=== PATIENT | female | born 1965 | race Caucasian/White ===

== ENCOUNTER 2016-12-23 18:47 | Inpatient (IN) | payer OTHER, MEDICAID ==
[2016-12-23] MEDS ORDERED: IOPAMIDOL 370 (76%) 100 ML VIAL IV ONE (18:48)
[2016-12-23] MEDS ORDERED: LACTATED RINGERS 1,000 ML ONE (19:27)
[2016-12-23 20:02] LABS: ABSOLUTE NEUTROPHIL COUNT 6.8 K/mm3 (1.8-7.7); BASO # 0.1 K/mm3 (0.0-0.2); BASO % 0.6 % (0.2-1.0); EOS # 0.2 (0.0-0.5); EOS % 2.1 % (0.9-2.9); HEMATOCRIT 30.8 % (37.0-47.0); HEMOGLOBIN 8.6 gm/l (12.0-16.0); IMM NEUT% 0.3 % (0-1); LYMPH % 10.7 % (15-45); MEAN CELL VOLUME 75.9 fl (81.0-99.0); MEAN CORPUSCULAR HEMOGLOBIN 21.2 pg (27.0-31.0); MEAN CORPUSCULAR HGB CONC 27.9 g/dl (33.0-37.0); MEAN PLATELET VOLUME 9.5 fl (7.4-10.4); MONO % 10.7 % (4-12); NEUT % 75.6 % (43-75); PLATELET COUNT 372 K/mm3 (130-400); RED CELL DISTRIBUTION WIDTH 19.3 % (11.5-14.5)
[2016-12-23 20:04] LABS: VENOUS BLOOD GAS BASE EXCESS -1.8 mmol/L (-2.0-2.0); VENOUS BLOOD GAS HCO3 22.8 mmol/L (22.0-27.0)
[2016-12-23 20:07] LABS: ALB/GLOB RATIO 1.2 (>1.0); CALCIUM 8.1 mg/dL (8.6-10.3)
[2016-12-23] MEDS ORDERED: SODIUM CHLORIDE 0.9% 50 ML IV ONE (21:04)
[2016-12-23] MEDS ORDERED: CEFTRIAXONE SODIUM 1 G VIAL ONE (21:04)
[2016-12-23] MEDS ORDERED: DOXYCYCLINE HYCLATE 100 MG TABLET ONE (21:04)
[2016-12-23] MEDS ORDERED: POTASSIUM CHLORIDE 40 MEQ in SODIUM CHLORIDE 0.9% 500 ML IV ONE ×2 (22:00→22:54)
--- NOTE | 2016-12-23 22:06 | CT ---
CTA CHEST FOR PE COMPARISON: None HISTORY: Technique: Intravenous injection 80 mL of Isovue-370. Using a [employer] Aquilion [address] scanner, following a CT angiogram protocol, images obtained through the thorax. Under concurrent supervision and interpretation, requiring a separate 3-D workstation, the technologist created 3-D CT angiograms. An automated dose reduction technique was used to minimize patient radiation dose. Dose information: DLP(mGycm): 1048.80 FINDINGS: Pulmonary arteries and veins: Excellent contrast opacification. No pulmonary embolism. Aorta: Normal Heart and coronary arteries: Normal. Lungs: Consolidation in the right lower lobe. Scattered infiltrates in the right middle lobe, right upper lobe, and left upper lobe and left lower lobe. Trachea and bronchi: Normal. Mediastinum and kemi: Normal. Pleura and pericardium: Mild right pleural effusion. Normal pericardium. Chest wall: Normal. Spine: No acute finding. Degenerative changes. Upper abdomen:Normal. 3-D CT angiogram: Normal. IMPRESSION: 1. Normal CT pulmonary angiogram. No pulmonary embolus. 2. Lobar pneumonia in the right lower lobe. Bronchopneumonia in both lungs. The results were discussed with Franky Young 12/23/2016 at 20:51
[2016-12-23] MEDS ORDERED: BLISTEX LIPSTICK 1 EACH TP PRN (22:42)
[2016-12-23] MEDS ORDERED: SODIUM CHLORIDE 0.9% 100 ML IV PRN (22:42)
[2016-12-23] MEDS ORDERED: MENTHOL/CETYLPYRD 1 EACH LOZENGE PO PRN (22:42)
[2016-12-23] MEDS ORDERED: BISACODYL 5 MG TABLET.EC PO PRN (22:42)
[2016-12-23] MEDS ORDERED: MAGNESIUM HYDROXIDE 30 ML UDCUP PO PRN (22:42)
[2016-12-23] MEDS ORDERED: BISACODYL 10 MG SUP PR PRN (22:42)
[2016-12-23] MEDS ORDERED: PUMP TUBING ONE (22:43)
[2016-12-23] MEDS ORDERED: SODIUM CHLORIDE 0.9% 250 ML IV ONE (22:44)
[2016-12-23] MEDS ORDERED: ZOLPIDEM TARTRATE 10 MG TABLET PO PRN (22:49)
[2016-12-23] MEDS ORDERED: OXYCODONE HCL 15 MG PO PRN (22:49)
[2016-12-23 23:00] VITALS: BMI 44.9
[2016-12-23] MEDS ORDERED: OXYCODONE HCL 5 MG TABLET ONE (23:01)
[2016-12-23] MEDS: OXYCODONE HCL 5 MG TABLET PO PRN (23:17)
[2016-12-23] MEDS: ALBUTEROL NEB 2.5 MG/3 ML VIAL.NEB NEB PRN (23:31)
[2016-12-23] MEDS ORDERED: POTASSIUM CHLORIDE 20 MEQ TAB.PRT.SR PO ONE (23:45)
[2016-12-24] MEDS: OXYCODONE HCL 5 MG TABLET PO PRN ×5 (03:00→21:05)
[2016-12-24 07:22] LABS: ABSOLUTE NEUTROPHIL COUNT 5.7 K/mm3 (1.8-7.7); BASO # 0.1 K/mm3 (0.0-0.2); BASO % 0.6 % (0.2-1.0); EOS # 0.3 (0.0-0.5); EOS % 3.2 % (0.9-2.9); HEMATOCRIT 29.6 % (37.0-47.0); HEMOGLOBIN 8.4 gm/l (12.0-16.0); IMM NEUT% 0.2 % (0-1); LYMPH # 1.2 (1.0-4.8); MEAN CELL VOLUME 75.3 fl (81.0-99.0); MEAN CORPUSCULAR HEMOGLOBIN 21.4 pg (27.0-31.0); MEAN CORPUSCULAR HGB CONC 28.4 g/dl (33.0-37.0); MEAN PLATELET VOLUME 8.7 fl (7.4-10.4); MONO % 12.5 % (4-12); NEUT % 69.5 % (43-75); PLATELET COUNT 309 K/mm3 (130-400)
[2016-12-24] MEDS ORDERED: FUROSEMIDE 20 MG/2 ML VIAL IV ONE (07:38)
--- NOTE | 2016-12-24 07:41 | HP ---
JOSEPH BALDERAS [id number] DATE OF ADMISSION: December 23, 2016 CHIEF COMPLAINT: Cough/shortness of breath. HISTORY OF PRESENT ILLNESS: The patient is a 51-year-old female with a past medical history significant for chronic pain, asthma, and hypertension who presented to the [facility] Emergency Department with a one week history of cough, four day history of chills and shortness of breath symptoms which had been getting progressively worse. Workup in the emergency department showed evidence of extensive pneumonia and she was referred to the hospitalist service for admission. REVIEW OF SYSTEMS: Patient's review of systems is negative for any documented fever. She has had no nasal congestion, sore throat or ear pain. She has had cough with dyspnea and wheezing as mentioned above. She states her cough is nonproductive. She has no change in chronic lower extremity edema. She has had a little bit of substernal chest pain with activity and coughing, no palpitations. No nausea, vomiting, diarrhea or constipation, no abdominal pain. She does suffer from chronic joint pain and back pain due to arthritis. She denies any headaches, fainting, blackouts or seizures. She denies any urinary complaints. Review of systems is otherwise negative. PAST MEDICAL HISTORY: 1. Is negative for any prior medical hospitalizations. 2. She has had a history of asthma for the past ten years which has been mild and intermittent. 3. She has chronic essential hypertension and has been treated for the last 25 years for this. 4. She has a history of morbid obesity and is status post gastric bypass. 5. She has a history of degenerative disc disease in her low back and chronic back pain. 6. She also has a history of generalize osteoarthritis. 7. Chronic pain due to fibromyalgia. PAST SURGICAL HISTORY: Significant for: 1. A parathyroidectomy in October,, in [place]. 2. She had a gastric bypass surgery in 2003. 3. She had a laparoscopic cholecystectomy that same year. 4. She has had three prior sections. ALLERGIES: NO KNOWN DRUG ALLERGIES. CURRENT MEDICATIONS: Consist of: 1. Oxycodone 15 mg four times daily as needed for pain. 2. Atenolol 25 mg daily. 3. Amlodipine 5 mg daily. 4. Tizanidine 4 mg up to three times daily as needed for spasms. 5. Ambien 10 mg at bedtime as needed for sleep. 6. Cymbalta 90 mg every morning. 7. Albuterol metered dose inhaler two to four puffs every four hours as needed for wheezing or dyspnea. FAMILY HISTORY: Unremarkable. SOCIAL HISTORY: She is a nonsmoker currently. She quit about ten years ago after a seven pack-year history of smoking. She is . She has three children. The youngest is age 15. She denies alcohol or illicit drug use. She does not work outside the home. Her primary care provider is Dr. Pool Osuna. PHYSICAL EXAMINATION: VITAL SIGNS: Temperature is 99.0, blood pressure 168/104, oxygen saturation 95% on three liters, pulse 69, respirations 24. Body mass index and weight have not yet been calculated. GENERAL: This is an obese female in mild respiratory distress. HEENT: Shows moist, pink oral mucosa, no lesions. NECK: Is supple without lymphadenopathy or thyromegaly. CHEST: Lungs shows scattered coarse rhonchi throughout both lung jaramillo and some expiratory wheezes. CARDIOVASCULAR: Exam reveals a regular rate and rhythm without a murmur. ABDOMEN: Is obese, soft, nontender, nondistended with positive bowel sounds. PELVIC: Exam is deferred. RECTAL: Exam is deferred. EXTREMITIES: Show trace to 1+ pitting edema in both lower extremities up to the knees. DIAGNOSTIC IMAGING STUDIES: Included a CTA of the chest showing infiltrates in the right middle lobe, right upper lobe, left upper lobe, right lower lobe and left lower lobe. LABORATORY STUDIES: CBC shows a white count of 9, hemoglobin of 8.6, platelet count 327,000. Patient's mean corpuscular volume is low at 75.9. Lactate is 0.7. Chemistry profile shows a sodium 138, potassium 3.4, carbon dioxide 28, BUN 14, creatinine 0.8, glucose 120, troponin I is less than 0.01. test is negative. ASSESSMENT: 1. Patient has extensive bacterial pneumonia involving both lungs associated with shortness of breath. 2. She has evidence of a microcytic anemia. 3. Mild hypokalemia. 4. She has chronic essential hypertension. 5. She has mild intermittent asthma. 6. Fibromyalgia with chronic pain on chronic opioid therapy. 7. Generalized osteoarthritis with chronic pain. 8. Obesity. Unclear if this is morbid. Body mass index is yet to be measured. PLAN: 1. She is admitted to the medical/surgical unit. She will be given supplemental oxygen therapy to keep her oxygen saturations above 92%. 2. She will be treated with Rocephin and doxycycline. 3. We will continue her usual medications for her hypertension and her chronic pain. 4. She will be given a potassium rider. 5. She will be urged to follow up with her primary care physician in the next eight weeks to discuss workup of her anemia which appears to be consistent with iron deficiency. 6. Venous thromboembolism risk is moderate and mechanical measures are employed only because of her anemia. 7. Further treatment and recommendations will depend on her hospital course. cc: Jose You.
[2016-12-24 07:47] LABS: CALCIUM 8.5 mg/dL (8.6-10.3)
[2016-12-24] MEDS ORDERED: CEFTRIAXONE 1 GRAM DUPLEX 1 G in Premix (D5W) 50 ml 1 EACH IV SCH ×2 (08:00→21:00)
[2016-12-24] MEDS: DULOXETINE HCL 30 MG CAPSULE.DR PO SCH (09:12)
[2016-12-24] MEDS: ATENOLOL 50 MG TABLET PO SCH (09:13)
[2016-12-24] MEDS: DOCUSATE SODIUM 100 MG CAPSULE PO SCH ×2 (09:13→20:59)
[2016-12-24] MEDS: AMLODIPINE BESYLATE 5 MG TABLET PO SCH (09:13)
[2016-12-24] MEDS: TIZANIDINE HCL 4 MG TABLET PO PRN ×3 (09:15→21:04)
[2016-12-24 09:20] LABS: ANISOCYTOSIS 1+; HYPOCHROMIA 2+; OVALOCYTES 1+; PLATELET ESTIMATE NORMAL (NORMAL)
[2016-12-24] MEDS: DOXYCYCLINE HYCLATE 100 MG in NS 0.9% (MINI-BAG PLUS) 100 ML IV SCH ×2 (10:19→20:57)
--- NOTE | 2016-12-24 10:40 | PDOC43 ---
- Subjective Chief Complaint: cough, shortness of breath Shortness of breath has improved overnight. She has developed new leg pain, feels like it is deep in her bones. This is not her usual fibromyalgia pain. She has been moving and has had increased activity over the past 4 days. Subjective: Reports Tolerating Diet Well, Reports Adequate Oral Intake, Reports Urinating Without Difficulty, Reports Shortness of Breath, Reports Cough, Denies Pain Tolerable, Denies Chest Pain, Denies Abdominal Pain, Denies Nausea, Denies Vomiting - Objective Vital Signs Temperature 98.8 F 12/24/16 08:00 Pulse Rate 59 12/24/16 10:24 Respiratory Rate 12 12/24/16 08:02 Blood Pressure 124/79 12/24/16 08:00 O2 Saturation by Pulse Oximetry 85 12/24/16 10:24 Oxygen Delivery Method Room Air Oxygen Flow Rate 0 Intake and Output 12/22/16 12/23/16 12/24/16 23:59 23:59 23:59 Intake Total 700 Output Total 2200 Balance -1500 General: Alert, Oriented x3, Cooperative, Other (morbidly obese), No Acute Distress HEENT: Atraumatic, PERRLA, EOMI, Mucous membr. moist/pink Lungs: Other (coarse, rhonchi throughout B/L) Cardiovascular: Regular Rate and Rhythm, Normal S1, Normal S2 Abdomen: Soft, Non-Distended, No Rigid, No Tenderness, No Rebounding Extremities: Edema, Tenderness, No Cyanosis Peripheral Pulses: Radial (L): 2+, Radial (R): 2+ Neurological: Normal Speech Psych/Mental Status: Flat Affect Laboratory 12/24/16 07:15 12/24/16 07:15 12/24/16 07:15 RBC 3.93 L MCV 75.3 L MCH 21.4 L MCHC 28.4 L RDW 19.0 H Estimated GFR 106 H Calcium 8.5 L Current Medications: Current meds reviewed in EMR. - Problems: Assessment/Plan (1) Pneumonia Qualifiers: Pneumonia type: due to unspecified organism Laterality: right Lung location: lower lobe of lung Qualifier Code: (J18.1) Lobar pneumonia, unspecified organism Status: AcuteAssessment/Plan: shortness of breath improving, requiring supplemental oxygen, on rocephin and doxycycline. Wean oxygen as toelrated (2) Fibromyalgia affecting multiple sites Status: ChronicAssessment/Plan: complicates medical care and chronic narcotic use that may impact oxygen saturations. May contribute to mood (3) Hypertension Qualifiers: Hypertension type: essential hypertension Qualifier Code: (I10) Essential (primary) hypertension Status: ChronicAssessment/Plan: stable, continue home medications (4) Morbid obesity with BMI of 45.0-49.9, adult Status: ChronicAssessment/Plan: complicates medical care (5) Asthma Qualifiers: Asthma severity: mild intermittent Asthma complication type: uncomplicated Qualifier Code: (J45.20) Mild intermittent asthma, uncomplicated Status: ChronicAssessment/Plan: may contribute to oxygenation, bronchospasm (6) Anemia Qualifiers: Anemia type: iron deficiency Iron deficiency anemia type: inadequate dietary iron intake Qualifier Code: (D50.8) Other iron deficiency anemias Status: ChronicAssessment/Plan: contributing to hypoxia, supplement
[2016-12-24] MEDS: FERROUS SULF (45 Fe) SR 1 EACH TAB.SR PO SCH (11:09)
[2016-12-24] MEDS: Magnesium Oxide 400 MG TABLET PO SCH (11:09)
[2016-12-24] MEDS: KETOROLAC TROMETHAMINE 30 MG/ML 1 ML VIAL IV PRN ×2 (11:26→17:37)
[2016-12-24] MEDS ORDERED: ZOLPIDEM TARTRATE 5 MG TABLET PO PRN (13:19)
[2016-12-24] MEDS: ACETAMINOPHEN 325 MG TABLET PO PRN (15:37)
[2016-12-25] MEDS: KETOROLAC TROMETHAMINE 30 MG/ML 1 ML VIAL IV PRN ×2 (00:09→09:13)
[2016-12-25] MEDS: OXYCODONE HCL 5 MG TABLET PO PRN ×4 (00:34→12:59)
[2016-12-25] MEDS: ACETAMINOPHEN 325 MG TABLET PO PRN ×2 (02:49→12:59)
[2016-12-25 06:31] LABS: HEMATOCRIT 29.6 % (37.0-47.0); HEMOGLOBIN 8.5 gm/l (12.0-16.0); MEAN CELL VOLUME 73.4 fl (81.0-99.0); MEAN CORPUSCULAR HEMOGLOBIN 21.1 pg (27.0-31.0); MEAN CORPUSCULAR HGB CONC 28.7 g/dl (33.0-37.0); RED CELL DISTRIBUTION WIDTH 18.6 % (11.5-14.5)
[2016-12-25 06:48] LABS: CALCIUM 8.6 mg/dL (8.6-10.3)
[2016-12-25] MEDS ORDERED: POTASSIUM CHLORIDE 20 MEQ TAB.PRT.SR PO ONE (08:56)
[2016-12-25] MEDS ORDERED: FUROSEMIDE 20 MG TABLET PO ONE (08:56)
--- NOTE | 2016-12-25 09:00 | PDOC43 ---
- Subjective Chief Complaint: cough, shortness of breath Patient awake and alert, feeling better. Her leg pain improved yesterday with toradol. Cough is the same but her shortness of breath has improved. Subjective: Reports Pain Tolerable, Reports Tolerating Diet Well, Reports Adequate Oral Intake, Reports Urinating Without Difficulty, Reports Shortness of Breath, Reports Other (hand swelling), Denies Cough, Denies Chest Pain, Denies Abdominal Pain, Denies Nausea, Denies Vomiting - Objective Vital Signs Temperature 98.6 F 12/25/16 07:51 Pulse Rate 65 12/25/16 08:00 Respiratory Rate 16 12/25/16 08:00 Blood Pressure 138/87 12/25/16 07:51 O2 Saturation by Pulse Oximetry 96 12/25/16 08:00 Oxygen Delivery Method Room Air Oxygen Flow Rate 0 Intake and Output 12/23/16 12/24/16 12/25/16 23:59 23:59 23:59 Intake Total 1512 656 Output Total 3200 1240 Balance -4158 -584 General: Alert, Oriented x3, Cooperative, Other (morbidly obese), No Acute Distress HEENT: Atraumatic, PERRLA, EOMI, Mucous membr. moist/pink Lungs: Normal Air Movement, Other (coarse B/L with crackle) Cardiovascular: Regular Rate and Rhythm, Normal S1, Normal S2 Abdomen: Soft, No Rigid, No Tenderness, No Rebounding Extremities: Edema, Tenderness, Other (B/L hand edema), No Cyanosis Neurological: Normal Speech Psych/Mental Status: Normal Mood Laboratory 12/25/16 05:15 12/25/16 05:15 12/25/16 05:15 RBC 4.03 L MCV 73.4 L MCH 21.1 L MCHC 28.7 L RDW 18.6 H Estimated GFR 106 H Current Medications: Current meds reviewed in EMR. - Problems: Assessment/Plan (1) Pneumonia Qualifiers: Pneumonia type: due to unspecified organism Laterality: right Lung location: lower lobe of lung Qualifier Code: (J18.1) Lobar pneumonia, unspecified organism Status: AcuteAssessment/Plan: shortness of breath improving, requiring supplemental oxygen, on rocephin and doxycycline. Wean oxygen as tolerated WBC trending down on room air. Lungs sound poorly. Will try nebulizer to see if offers improvement (2) Fibromyalgia affecting multiple sites Status: ChronicAssessment/Plan: complicates medical care and chronic narcotic use that may impact oxygen saturations. May contribute to mood (3) Hypertension Qualifiers: Hypertension type: essential hypertension Qualifier Code: (I10) Essential (primary) hypertension Status: ChronicAssessment/Plan: stable, continue home medications (4) Morbid obesity with BMI of 45.0-49.9, adult Status: ChronicAssessment/Plan: complicates medical care (5) Asthma Qualifiers: Asthma severity: mild intermittent Asthma complication type: uncomplicated Qualifier Code: (J45.20) Mild intermittent asthma, uncomplicated Status: ChronicAssessment/Plan: may contribute to oxygenation, bronchospasm. Try nebulizer (6) Anemia Qualifiers: Anemia type: iron deficiency Iron deficiency anemia type: inadequate dietary iron intake Qualifier Code: (D50.8) Other iron deficiency anemias Status: ChronicAssessment/Plan: contributing to hypoxia, supplement Stable (7) Edema, peripheral Status: AcuteAssessment/Plan: B/L hands, will try dose of diuretic
[2016-12-25] MEDS: DOXYCYCLINE HYCLATE 100 MG in NS 0.9% (MINI-BAG PLUS) 100 ML IV SCH (09:16)
[2016-12-25] MEDS: AMLODIPINE BESYLATE 5 MG TABLET PO SCH (09:17)
[2016-12-25] MEDS: DOCUSATE SODIUM 100 MG CAPSULE PO SCH (09:17)
[2016-12-25] MEDS: ATENOLOL 50 MG TABLET PO SCH (09:17)
[2016-12-25] MEDS: Magnesium Oxide 400 MG TABLET PO SCH (09:17)
[2016-12-25] MEDS: DULOXETINE HCL 30 MG CAPSULE.DR PO SCH (09:18)
[2016-12-25] MEDS: TIZANIDINE HCL 4 MG TABLET PO PRN (09:19)
[2016-12-25] MEDS: ALBUTEROL NEB 2.5 MG/3 ML VIAL.NEB NEB PRN (09:19)
[2016-12-25] MEDS: FERROUS SULF (45 Fe) SR 1 EACH TAB.SR PO SCH (09:26)
[2016-12-25] MEDS ORDERED: ALBUTEROL/IPRATROPIUM 2.5/0.5 MG 3 ML/EACH DOSE NEB SCH (12:00)
[2016-12-25 13:32] VITALS: BP 138/93
--- NOTE | 2016-12-25 17:08 | DS ---
JOSEPH BALDERAS [id number] DATE OF ADMISSION: 12/23/2016 DATE OF DISCHARGE: 12/25/2016 DISCHARGE DIAGNOSES: 1. Multilobar bacterial pneumonia community acquired organism unknown. 2. Shortness of breath. 3. Chronic essential hypertension. 4. Morbid obesity. 5. Acute hypokalemia. 6. Chronic microcytic anemia likely from dysfunctional uterine bleeding. 7. Obstructive sleep apnea on home CPAP therapy. 8. Mildly intermittent asthma. 9. Fibromyalgia with chronic pain. 10. Generalized osteoarthritis with chronic pain. SUMMARY OF ADMISSION AND HOSPITAL COURSE: The patient is a 51-year-old female with medical problems as listed above who presented with complaints of shortness of breath and cough with chills over the past 4 days. Workup in the emergency department included a CT of the chest with contrast showing evidence of multilobar pneumonia involving the right lower lobe, and right middle, and right upper lobes and basically the left upper and left lower lobe as well. She was admitted to the Hospitalist service. Her white blood cell count remained normal throughout her stay. Initially it was 9, and it was down to 6.7 on the day of discharge. She remained afebrile throughout her stay. She was noted to have a microcytic anemia. Her initial hemoglobin was 8.6, and her mean corpuscular volume was 73.4. This also was stable at discharge. She had a mildly reduced potassium on admission on 3.4 which improved with replacement. Over the course of her hospitalization, her cough and her dyspnea improved. She was weaned off of oxygen on 12/25/2016, and was ambulatory without hypoxia, and felt to be medically stable for discharge. PHYSICAL EXAM: VITAL SIGNS: Her vital signs at discharge showed a body mass index of 45, weight of 111.5 kg, temperature of 98.6, pulse 57, blood pressure 138/93, respirations 18, oxygen saturation is 99% on room air. GENERAL: This is an obese female in no acute distress. HEENT: Unremarkable. NECK: Supple without lymphadenopathy, or thyromegaly. LUNGS: Clear to auscultation bilaterally. CARDIOVASCULAR: Exam reveals a regular rate and rhythm without a murmur. ABDOMEN: Obese, soft, nontender, nondistended, with positive bowel sounds. EXTREMITIES: Show trace peripheral edema. DISCHARGE LABORATORY STUDIES: CBC showed a white count of 6.7, hemoglobin of 8.5, and platelet count of 324,000. Chemistry profile showed a sodium of 141, potassium 3.6, BUN 11, and creatinine 0.6. Iron studies are pending. DISPOSITION: Home. ALLERGIES: SHE HAS NO KNOWN DRUG ALLERGIES. DISCHARGE DIET: Regular diet. INSTRUCTIONS: She should follow up with her primary care provider, Dr. Pool Osuna MD in the next 7 to 10 days if he is able. She is advised to try a stool softener if she develops constipation on the iron therapy. DISCHARGE MEDICATIONS: Include: 1. Omnicef 300 mg twice daily for 10 days. 2. Doxycycline 100 mg twice daily for 10 days. 3. Potassium chloride 8 mEq daily for 30 days. Refills to be authorized by her primary care provider. 4. Norvasc 5 mg by mouth daily. 5. Atenolol 50 mg by mouth daily. 6. Oxycodone 15 mg 4 times daily as needed for her chronic pain. 7. Cymbalta 90 mg daily. 8. Zanaflex 4 mg 3 times daily as needed for spasm. 9. Ambien 10 mg as needed for sleep. 10. Albuterol HFA inhaler 2 puffs every 4 hours as needed for wheezing. 11. Lasix 20 mg daily. 12. Iron sulfate 325 mg twice daily DISCHARGE CONDITION: Good. FERNIE/gallo Cc: Pool Osuna MD
[2016-12-26 05:32] LABS: IRON 11 ug/dL (50-212); TOTAL IRON BINDING CAPACITY 416 ug/dL (261-478); TRANSFERRIN 297 mg/dL (203-362)
== END 2016-12-25 16:27 | disposition home or self-care (01) | DRG 194 ==
LOC: ED 18:47 → MS 21:12
PROVIDERS: ADMIT Family Medicine; ATTEND Family Medicine
DX: J15.9 Unspecified bacterial pneumonia (principal); Z68.42 Body mass index [BMI] 45.0-49.9, adult; I10 Essential (primary) hypertension; E66.01 Morbid (severe) obesity due to excess calories; E87.6 Hypokalemia; D50.9 Iron deficiency anemia, unspecified; G47.33 Obstructive sleep apnea (adult) (pediatric); J45.20 Mild intermittent asthma, uncomplicated; M79.7 Fibromyalgia; M15.9 Polyosteoarthritis, unspecified